=== PATIENT | male | born 1970 | race African-American/Black ===

== ENCOUNTER 2017-02-21 22:37 | Inpatient (IN) | payer OTHER ==
[~2017-02-21] VITALS: Ht 182.9 cm; Wt 99.8 kg
[2017-02-21] MEDS ORDERED: SODIUM CHLORIDE 0.9% 1,000 ML IV ONE (22:58)
[2017-02-21 23:55] LABS: BASOPHILS % 0.3 % (0.0-2.0); HEMATOCRIT. 43.9 % (42.0-52.0); HEMOGLOBIN. 14.6 g/dL (14.0-18.0); LYMPHOCYTES % 24.2 % (20.0-50.0); MEAN CORPUSCULAR HEMOGLOBIN 28.8 pg (28.0-32.0); MEAN CORPUSCULAR VOLUME 86.8 fL (80.0-94.0); MEAN PLATELET VOLUME 9.3 fl (7.4-10.4); MONOCYTES % 8.5 % (2.0-8.0); PLATELET 263 x1000/uL (130-400); RED BLOOD CELL COUNT 5.06 mill/uL (4.7-6.1); RED CELL DISTRIBUTION WIDTH 14.8 % (11.6-14.6)
[2017-02-22] LABS: INR 1.1; PROTHROMBIN TIME 11.7 sec (9.4-11.6)
[2017-02-22 00:10] LABS: CARBON DIOXIDE 25 mEq/L (21-32); CHLORIDE 100 mEq/L (98-107); TROPONIN I < 0.02 ng/mL (0.00-0.04)
[2017-02-22] MEDS ORDERED: SODIUM CHLORIDE 0.9% 1,000 ML IV SCH (01:04)
[2017-02-22] MEDS ORDERED: PANTOPRAZOLE SODIUM 40 MG/VIAL IV STA (01:11)
[2017-02-22 01:18] LABS: GLUCOSE URINE NEGATIVE (NEGATIVE); KETONES URINE TRACE (NEGATIVE); LEUKOCYTE ESTERASE URINE NEGATIVE (NEGATIVE); NITRITE URINE NEGATIVE (NEGATIVE); OCCULT BLOOD URINE NEGATIVE (NEGATIVE); PROTEIN URINE NEGATIVE (NEGATIVE); SPECIFIC GRAVITY URINE 1.022 (1.005-1.030); UROBILINOGEN URINE 0.2 E.U./dL (0.2-1.0)
[2017-02-22 01:20] LABS: CLARITY URINE CLEAR (CLEAR); COLOR URINE YELLOW (YELLOW)
[2017-02-22 01:42] LABS: BASOPHILS % 0.2 % (0.0-2.0); EOSINOPHILS % 0.2 % (0.0-5.0); HEMATOCRIT. 39.1 % (42.0-52.0); HEMOGLOBIN. 13.3 g/dL (14.0-18.0); LYMPHOCYTES % 8.6 % (20.0-50.0); MEAN CORPUSCULAR HEMOGLOBIN 29.2 pg (28.0-32.0); MEAN PLATELET VOLUME 9.5 fl (7.4-10.4); MONOCYTES % 6.2 % (2.0-8.0); NEUTROPHILS % 84.8 % (40.0-76.0); PLATELET 228 x1000/uL (130-400); RED BLOOD CELL COUNT 4.55 mill/uL (4.7-6.1); RED CELL DISTRIBUTION WIDTH 14.7 % (11.6-14.6)
[2017-02-22 03:30] VITALS: BP 139/98
[2017-02-22] MEDS ORDERED: SODIUM CHLORIDE 0.9% 1,000 ML IV ONE (05:10)
[2017-02-22] MEDS ORDERED: MAGNESIUM/ALUMINUM HYDROXIDE/SIMETHICONE 30ML UDC PO PRN (05:15)
[2017-02-22] MEDS ORDERED: CLONIDINE 0.1MG TABLET PO PRN (05:15)
[2017-02-22] MEDS ORDERED: IPRATROPIUM/ALBUTEROL 0.5-3(2.5)MG/3ML NEB INH PRN (05:15)
[2017-02-22] MEDS ORDERED: ONDANSETRON HCL 4MG/2ML VIAL IV PRN (05:15)
[2017-02-22] MEDS ORDERED: LORAZEPAM 1MG TABLET PO PRN (05:15)
[2017-02-22] MEDS: IBUPROFEN 600MG TABLET PO PRN ×2 (05:42→19:09)
[2017-02-22] MEDS ORDERED: POTASSIUM CHLORIDE 20MEQ TABLET SR PO SCH (06:15)
[2017-02-22 08:30] VITALS: BP 114/69
[2017-02-22] MEDS: LISINOPRIL 10MG TABLET PO SCH (09:27)
[2017-02-22] MEDS: METOPROLOL TARTRATE 25MG TABLET PO SCH ×2 (09:27→20:51)
[2017-02-22] MEDS: FOLIC ACID 1MG TABLET PO SCH (09:28)
[2017-02-22] MEDS: MULTIVITAMINS,THER W-MINERALS TABLET PO SCH (09:28)
[2017-02-22] MEDS: THIAMINE HCL 100MG TABLET PO SCH (09:28)
[2017-02-22 09:41] LABS: CREATINE KINASE 176 IU/L (39-308); TROPONIN I < 0.02 ng/mL (0.00-0.04)
[2017-02-22 12:30] VITALS: BP 99/55
[2017-02-22 13:44] LABS: *AMPHETAMINES SCREEN URINE NEGATIVE (NEGATIVE); *BARBITURATES SCREEN URINE NEGATIVE (NEGATIVE); *BENZODIAZEPINES SCREEN URINE NEGATIVE (NEGATIVE); *COCAINE SCREEN URINE NEGATIVE (NEGATIVE); CANNABINOID URINE SCREEN NEGATIVE (NEGATIVE); METHADONE URINE SCREEN NEGATIVE (NEGATIVE); OPIATES URINE SCREEN NEGATIVE (NEGATIVE); PHENCYCLIDINE URINE SCREEN NEGATIVE (NEGATIVE)
[2017-02-22 16:40] LABS: CREATINE KINASE 147 IU/L (39-308); TROPONIN I < 0.02 ng/mL (0.00-0.04)
[2017-02-22] MEDS ORDERED: NAP5EC PO (17:07)
[2017-02-22] MEDS ORDERED: CETI10TA6 PO (17:08)
[2017-02-22] MEDS ORDERED: HYDR25TA PO (17:10)
[2017-02-22 17:19] VITALS: BP 86/53
[2017-02-22] MEDS ORDERED: HYDROCODONE/ACETAMINOPHEN 10/325MG TABLET PO PRN (17:30)
[2017-02-22] MEDS: SODIUM CHLORIDE 0.9% 500 ML IV NR ×2 (17:57→22:30)
[2017-02-22] MEDS ORDERED: IOHEXOL-300 100 ML BOTTLE ONE (18:00)
[2017-02-22] MEDS ORDERED: SODIUM CHLORIDE 0.9% 10ML VIAL ONE (18:00)
[2017-02-22 18:30] VITALS: BP 90/58
[2017-02-22 20:00] VITALS: BP_SYST 105; BP_SYST 96; BP_SYST 99; BP_DIAS 54; BP_DIAS 57; BP_DIAS 68
[2017-02-23] VITALS: BP 91/48
[2017-02-23 04:00] VITALS: BP 97/61
[2017-02-23 07:48] LABS: CARBON DIOXIDE 25 mEq/L (21-32); CHLORIDE 109 mEq/L (98-107); HDL CHOLESTEROL 30 mg/dL (40-59); LDL CHOLESTEROL 53 mg/dL (5-100)
[2017-02-23 08:00] VITALS: BP_SYST 101; BP_SYST 112; BP_SYST 120; BP_DIAS 71; BP_DIAS 74; BP_DIAS 76
[2017-02-23 08:06] LABS: BASOPHILS % 0.5 % (0.0-2.0); EOSINOPHILS % 3.7 % (0.0-5.0); HEMATOCRIT. 32.9 % (42.0-52.0); HEMOGLOBIN. 10.7 g/dL (14.0-18.0); LYMPHOCYTES % 38.4 % (20.0-50.0); MEAN CORPUSCULAR HEMOGLOBIN 28.8 pg (28.0-32.0); MEAN CORPUSCULAR VOLUME 88.2 fL (80.0-94.0); MEAN PLATELET VOLUME 9.9 fl (7.4-10.4); MONOCYTES % 8.6 % (2.0-8.0); NEUTROPHILS % 48.8 % (40.0-76.0); PLATELET 187 x1000/uL (130-400); RED BLOOD CELL COUNT 3.73 mill/uL (4.7-6.1)
[2017-02-23] MEDS ORDERED: PANTOPRAZOLE SODIUM 40 MG/VIAL IV SCH (09:00)
[2017-02-23] MEDS: LISINOPRIL 10MG TABLET PO SCH (09:24)
[2017-02-23] MEDS: MULTIVITAMINS,THER W-MINERALS TABLET PO SCH (09:25)
[2017-02-23] MEDS: FOLIC ACID 1MG TABLET PO SCH (09:25)
[2017-02-23] MEDS: THIAMINE HCL 100MG TABLET PO SCH (09:25)
[2017-02-23] MEDS: METOPROLOL TARTRATE 25MG TABLET PO SCH (09:25)
[2017-02-23 10:17] LABS: BG BASE EXCESS -1.5 mmol/L (-2.0-2.0); BG CARBOXYHEMOGLOBIN 0.5 % (0.5-1.5); BG FRACTION INSPIRED OXYGEN 21; BG HCO3 ACT 21.8 mmol/L (22.0-26.0); BG METHEMOGLOBIN 0.2 % (0.0-1.5); BG OXYHEMOGLOBIN 95.3 % (94.0-97.0); BG PCO2 32.6 mmHg (35.0-45.0); BG PH 7.444 (7.350-7.450); BG PO2 80.7 mmHg (75.0-100.0); BG SAMPLE SITE RIGHT RADIAL; BG TOTAL HEMOGLOBIN 12.8 g/dL (12.0-18.0); BG VENT MODE ROOM AIR
[2017-02-23 12:00] VITALS: BP 108/64
[2017-02-23] MEDS ORDERED: LISI10TA5 PO (12:31)
[2017-02-23 15:15] VITALS: BP 108/64
[2017-02-23 16:00] VITALS: BP 110/71
== END 2017-02-23 18:30 | disposition home or self-care (01) | DRG 312 ==
LOC: ER 23:53 → 5WST 02-22 01:06 → EDBEDREQ 02-22 01:12 → ENRESERV 02-22 03:02
PROVIDERS: ADMIT Internal Medicine; ATTEND Internal Medicine
DX: R55 Syncope and collapse (principal); E87.2 Acidosis; E44.1 Mild protein-calorie malnutrition; E86.0 Dehydration; I10 Essential (primary) hypertension; M06.9 Rheumatoid arthritis, unspecified; M10.9 Gout, unspecified; Z88.6 Allergy status to analgesic agent; Z68.29 Body mass index [BMI] 29.0-29.9, adult
CPT/HCPCS: 36415; 36600; 70470; 71010; 80053; 80061; 80305; 81003; 82375; 82550; 82805; 83605; 83690; 84443; 84484; 84550; 85025; 85610; 86850; 86900; 87493; 93005; 93306; 93880; 96361; 96374; 99285; A4216; C9113; J7030; J7040; Q9967